=== PATIENT | female | born 1960 | race African-American/Black ===

== ENCOUNTER → 2017-11-19 | Outpatient (CLI) | payer OTHER ==
[~2017-11-19] MED LIST: AEC81 PO; AMLO10TA2 PO; AMPI500C12 PO; BIMA2.5D4 OU; BRIM5DRO OU; CEFUROXIME SODIUM 1.5 GM VIAL IVP SCH; FOLI1TAB48 PO; HAIR SKIN NAILS PO; LISI1TAB11 PO; METO25 PO; OMEG-108 PO; TRAM50TA2 PO; [UNRECOGNIZED DRUG - OTHER]
[2017-11-19 14:12] LABS: LYMPHOCYTES % (AUTO) 33.4 % (21.0-51.0); MEAN CORPUSCULAR HEMOGLOBIN 28.9 pg (27.0-33.0); MEAN CORPUSCULAR HGB CONC 32.9 g/dL (32.0-36.0); MEAN CORPUSCULAR VOLUME 88.1 fL (79-99); MONOCYTES % (AUTO) 9.2 % (3.0-13.0); NEUTROPHILS % (AUTO) 54.4 % (40.0-77.0); PLATELET COUNT (AUTO) 262 K/uL (130-400); RED BLOOD CELL COUNT(AUTO) 4.55 MIL/uL (4.00-5.50); RED CELL DISTRIBUTION WIDTH 12.4 % (11.0-15.5); WHITE BLOOD COUNT (AUTO) 4.7 K/uL (4.8-10.8)
[2017-11-19 14:22] LABS: INR 0.95 (0.85-1.15); PARTIAL THROMBOPLASTIN TIME 31.3 SEC (26.3-35.5)
[2017-11-19 14:28] LABS: ALBUMIN 3.8 g/dL (3.5-5.0); BILIRUBIN,TOTAL 0.3 mg/dL (0.2-1.0); CREATININE 1.1 mg/dL (0.5-1.5); HEMOGLOBIN A1C 5.8 % (4.0-6.0); POTASSIUM 4.3 mmol/L (3.5-5.1); TOTAL PROTEIN, SERUM 8.1 g/dL (6.0-8.3)
== END | disposition home or self-care (01) ==
LOC: DAH 10:00 → EDSTATUS 11-20 10:00
PROVIDERS: ATTEND Thoracic Surgery (Cardiothoracic Vascular Surgery)
DX: Z01.818 Encounter for other preprocedural examination (principal); I71.9 Aortic aneurysm of unspecified site, without rupture; I35.1 Nonrheumatic aortic (valve) insufficiency
CPT/HCPCS: 36415; 71046; 80053; 80061; 83036; 85025; 85610; 85730; 86850; 86900; 86901; 86922; 93005; 94010

== ENCOUNTER 2017-12-03 11:00 | Inpatient (IN) | payer OTHER ==
[~2017-12-03] VITALS: Ht 165.1 cm; Wt 76.5 kg
[~2017-12-03 11:00] MED LIST changes: -AEC81 PO; -AMPI500C12 PO; -CEFUROXIME SODIUM 1.5 GM VIAL IVP SCH; -METO25 PO; -TRAM50TA2 PO; -[UNRECOGNIZED DRUG - OTHER]
[2017-12-03 12:37] LABS: BASOPHILS % (AUTO) 1.5 % (0.0-5.0); EOSINOPHILS % (AUTO) 2.1 % (0.0-8.0); HEMATOCRIT 38.7 % (36-48); LYMPHOCYTES % (AUTO) 37.1 % (21.0-51.0); MEAN CORPUSCULAR HGB CONC 33.8 g/dL (32.0-36.0); MONOCYTES % (AUTO) 7.1 % (3.0-13.0); NEUTROPHILS % (AUTO) 52.2 % (40.0-77.0); PLATELET COUNT (AUTO) 275 K/uL (130-400); RED BLOOD CELL COUNT(AUTO) 4.35 MIL/uL (4.00-5.50); RED CELL DISTRIBUTION WIDTH 12.6 % (11.0-15.5); WHITE BLOOD COUNT (AUTO) 4.4 K/uL (4.8-10.8)
[2017-12-03 12:45] LABS: HEMOGLOBIN A1C 5.5 % (4.0-6.0)
[2017-12-03 12:51] LABS: ALBUMIN 3.8 g/dL (3.5-5.0); BILIRUBIN,TOTAL 0.3 mg/dL (0.2-1.0); CREATININE 1.2 mg/dL (0.5-1.5)
[2017-12-03] MEDS ORDERED: [UNRECOGNIZED DRUG - OTHER] (12:57)
[2017-12-03 13:02] LABS: INR 0.96 (0.85-1.15); PARTIAL THROMBOPLASTIN TIME 31.9 SEC (26.3-35.5); PROTHROMBIN TIME 10.1 SEC (9.6-11.6)
[2017-12-03 13:11] VITALS: BP 140/78
[2017-12-03] MEDS: CEFUROXIME SODIUM 1.5 GM VIAL IVP SCH (14:15)
[2017-12-04] VITALS (22 sets, daily range): BP systolic 86–142; BP diastolic 47–84
[2017-12-04] MEDS ORDERED: SODIUM CHLORIDE 0.9% 1000ML 1,000 ML IV ONE (08:07)
[2017-12-04] MEDS ORDERED: NOREPINEPHRINE BITARTRATE 1 MG/1 ML ML IV ONE (08:58)
[2017-12-04] MEDS ORDERED: DELNIDO FORMULA 1 BAG IV ONE (09:03)
[2017-12-04] MEDS ORDERED: POTASSIUM CHLORIDE 20MEQ/100ML 100 ML IV ONE (09:04)
[2017-12-04] MEDS ORDERED: BACITRACIN 50,000 UNIT VIAL ONE (09:05)
[2017-12-04] MEDS ORDERED: THROMBIN-JMI 5000 UNIT/VIAL TP ONE (09:30)
[2017-12-04] MEDS ORDERED: GLYCOPYRROLATE 0.2 MG/ML 5 ML VIAL ONE (10:10)
[2017-12-04] MEDS ORDERED: DEXAMETHASONE SOD PHOSPHATE 10MG/ML 1ML VIAL ONE (10:10)
[2017-12-04] MEDS ORDERED: LIDOCAINE PF 2% 5ML ABBOJECT ONE (10:10)
[2017-12-04] MEDS ORDERED: SUCCINYLCHOLINE 200MG/10ML SYR ONE (10:10)
[2017-12-04] MEDS ORDERED: FENTANYL CITRATE PF 50 MCG/1 ML 2ML VIAL ONE ×3 (10:11→11:08)
[2017-12-04] MEDS ORDERED: MIDAZOLAM HCL 1 MG/ML 2ML VIAL ONE (10:11)
[2017-12-04] MEDS ORDERED: PROPOFOL 10 MG/ML 20ML VIAL IV ONE (10:11)
[2017-12-04] MEDS: CEFUROXIME SODIUM 1.5 GM VIAL IVP SCH ×2 (10:33→21:43)
[2017-12-04 10:44] LABS: ABG BASE EXCESS -0.9 mmol/L (-2.0-3.0); ABG HCO3 24.3 mmol/L (21.0-28.0); ABG OXYGEN SATURATION 99.5 % (95.0-99.0); ABG PCO2 42 mmHg (32-45)
[2017-12-04] MEDS: AMBU PUMP 1 EACH EACH MISC SCH ×2 (11:00→11:11)
[2017-12-04] MEDS ORDERED: METHYLPREDNISOLONE SOD SUCC 1,000 MG/8 ML ML IV ONE (11:01)
[2017-12-04] MEDS ORDERED: CALCIUM CHLORIDE 100 MG/ML 10 ML SYG IVP ONE (12:00)
[2017-12-04] MEDS ORDERED: MANNITOL 25% 50ML VIAL IV ONE (12:00)
[2017-12-04] MEDS ORDERED: AMINOCAPROIC ACID 250 MG/ML 20 ML VIAL IV ONE (12:00)
[2017-12-04] MEDS ORDERED: ALBUMIN (HUMAN) 25% 50 ML IV ONE (12:00)
[2017-12-04] MEDS ORDERED: MAGNESIUM SULFATE 1 GM/2 ML VIAL IM ONE (12:00)
[2017-12-04] MEDS ORDERED: HEPARIN SODIUM 1000UNIT/ML 10ML VIAL IV ONE (12:00)
[2017-12-04] MEDS ORDERED: SODIUM BICARB 8.4% 50ML SYRINGE IVP ONE (12:00)
[2017-12-04 12:02] LABS: ABG BASE EXCESS 1.3 mmol/L (-2.0-3.0); ABG HCO3 24.4 mmol/L (21.0-28.0); ABG OXYGEN SATURATION 99.1 % (95.0-99.0); ABG PCO2 33 mmHg (32-45)
[2017-12-04 12:38] LABS: ABG BASE EXCESS -0.6 mmol/L (-2.0-3.0); ABG HCO3 23.5 mmol/L (21.0-28.0); ABG OXYGEN SATURATION 98.9 % (95.0-99.0); ABG PCO2 37 mmHg (32-45)
[2017-12-04] MEDS ORDERED: ROPIVACAINE 0.2% 2MG/ML 100ML VIAL IJ ONE (13:00)
[2017-12-04 13:04] LABS: ABG BASE EXCESS -0.7 mmol/L (-2.0-3.0); ABG HCO3 23.2 mmol/L (21.0-28.0); ABG OXYGEN SATURATION 98.9 % (95.0-99.0); ABG PCO2 35 mmHg (32-45)
[2017-12-04] MEDS ORDERED: PROTAMINE SULFATE 10 MG/ML 5 ML VIAL ONE (13:13)
[2017-12-04] MEDS ORDERED: SODIUM CHLORIDE 0.9% 500ML 500 ML IV SCH (13:17)
[2017-12-04] MEDS ORDERED: MAGNESIUM 2GM PREMIX 50ML 50 ML IV PRN (13:30)
[2017-12-04] MEDS ORDERED: ACETAMINOPHEN 650 MG SUPPOSITORY RC PRN (13:30)
[2017-12-04] MEDS ORDERED: INSULIN REGULAR, HUMAN 3ML 100 UNIT in SODIUM CHLORIDE 0.9% 99 ML IV SCH ×2 (13:30)
[2017-12-04] MEDS ORDERED: AMINOCAPROIC ACID 15,000 MG in SODIUM CHLORIDE 0.9% 250 ML IV SCH (13:30)
[2017-12-04] MEDS ORDERED: SODIUM CHLORIDE 0.9% 1000ML 1,000 ML IV SCH (13:30)
[2017-12-04] MEDS ORDERED: GLUCAGON 1MG KIT 1 MG ML IM PRN (13:30)
[2017-12-04] MEDS ORDERED: POTASSIUM PHOS 15 mMOL+NS250ML 250 ML IV PRN (13:30)
[2017-12-04] MEDS ORDERED: ONDANSETRON HCL 4 MG/2 ML VIAL IV PRN (13:30)
[2017-12-04] MEDS ORDERED: NITROGLYCERIN 50 MG/D5% WATER 250 BOT IV SCH (13:30)
[2017-12-04] MEDS ORDERED: CALCIUM GLUCONATE 1 GM in SODIUM CHLORIDE 0.9% 50 ML IV PRN (13:30)
[2017-12-04] MEDS ORDERED: NICARDIPINE HCL 100 MG in SODIUM CHLORIDE 0.9% 100 ML IV PRN (13:30)
[2017-12-04] MEDS ORDERED: EPINEPHRINE 2 MG in SODIUM CHLORIDE 0.9% 250 ML IV PRN (13:30)
[2017-12-04] MEDS ORDERED: SODIUM CHLORIDE 0.9% 250 ML IV PRN (13:30)
[2017-12-04] MEDS ORDERED: PROPOFOL 1000 MG/100 ML 100 ML IV PRN (13:30)
[2017-12-04] MEDS ORDERED: NOREPINEPHRINE 4MG/NS 250ML 250 ML IV PRN (13:30)
[2017-12-04] MEDS ORDERED: SODIUM BICARB 8.4% 50ML SYRINGE IV PRN (13:30)
[2017-12-04] MEDS ORDERED: ALBUMIN (HUMAN) 5% 250 ML IV PRN (13:30)
[2017-12-04] MEDS ORDERED: DEXTROSE 50%-WATER 50 ML DISP.SYRIN IV PRN (13:30)
[2017-12-04] MEDS ORDERED: MORPHINE SULFATE 2 MG/ML 1ML SYG IV PRN (13:30)
[2017-12-04] MEDS ORDERED: SODIUM CHLORIDE 0.9% 10 ML VIAL IVP PRN (13:30)
[2017-12-04 13:46] LABS: ABG BASE EXCESS -2.6 mmol/L (-2.0-3.0); ABG HCO3 21.1 mmol/L (21.0-28.0); ABG OXYGEN SATURATION 99.1 % (95.0-99.0); ABG PCO2 33 mmHg (32-45)
[2017-12-04] MEDS ORDERED: MORPHINE SULFATE 10 MG/ML 1ML SYG ONE (13:55)
[2017-12-04 15:02] LABS: ABG BASE EXCESS -4.1 mmol/L (-2.0-3.0); ABG HCO3 18.5 mmol/L (21.0-28.0); ABG OXYGEN SATURATION 99.4 % (95.0-99.0); ABG PCO2 27 mmHg (32-45)
[2017-12-04 15:20] LABS: CREATININE 1.1 mg/dL (0.5-1.5); PHOSPHORUS 2.1 mg/dL (2.5-4.9); POTASSIUM 3.8 mmol/L (3.5-5.1)
[2017-12-04] MEDS: MORPHINE SULFATE 4 MG/1ML SYG IV PRN (15:21)
[2017-12-04 15:23] LABS: HEMATOCRIT 32.6 % (36-48); MEAN CORPUSCULAR HEMOGLOBIN 28.6 pg (27.0-33.0); MEAN CORPUSCULAR HGB CONC 32.8 g/dL (32.0-36.0); MEAN CORPUSCULAR VOLUME 87.3 fL (79-99); PLATELET COUNT (AUTO) 185 K/uL (130-400); RED BLOOD CELL COUNT(AUTO) 3.73 MIL/uL (4.00-5.50); RED CELL DISTRIBUTION WIDTH 12.3 % (11.0-15.5); WHITE BLOOD COUNT (AUTO) 14.2 K/uL (4.8-10.8)
[2017-12-04] MEDS: POTASSIUM CHLORIDE 20MEQ/100ML 100 ML IV PRN ×3 (15:54→21:42)
[2017-12-04] MEDS: ONDANSETRON HCL MDV 20ML 2 MG/ML VIAL IV PRN (17:16)
[2017-12-04 18:33] LABS: ABG BASE EXCESS -3.8 mmol/L (-2.0-3.0); ABG HCO3 19.9 mmol/L (21.0-28.0); ABG OXYGEN SATURATION 98.9 % (95.0-99.0); ABG PCO2 32 mmHg (32-45)
[2017-12-04] MEDS ORDERED: SODIUM BICARB 50MEQ 50ML VIAL ONE (20:33)
[2017-12-04] MEDS ORDERED: CEFUROXIME 1.5GM+NS 100ML 100 ML IV SCH (21:30)
[2017-12-04 21:38] LABS: ABG BASE EXCESS -0.6 mmol/L (-2.0-3.0); ABG HCO3 24.4 mmol/L (21.0-28.0); ABG OXYGEN SATURATION 97.5 % (95.0-99.0); ABG PCO2 41 mmHg (32-45)
[2017-12-04] MEDS ORDERED: CALCIUM GLUCONATE 1 GM/10 ML VIAL IV ONE (21:39)
[2017-12-04] MEDS: HYDROCODONE/ACETAMINOPHEN 5/325 MG TAB PO PRN (22:18)
[2017-12-05] VITALS (24 sets, daily range): BP systolic 103–143; BP diastolic 65–93
[2017-12-05 00:19] LABS: ABG BASE EXCESS -3.8 mmol/L (-2.0-3.0); ABG HCO3 21.1 mmol/L (21.0-28.0); ABG OXYGEN SATURATION 96.4 % (95.0-99.0); ABG PCO2 38 mmHg (32-45)
[2017-12-05] MEDS ORDERED: SODIUM BICARB 50MEQ 50ML VIAL ONE (00:29)
[2017-12-05] MEDS: ONDANSETRON HCL MDV 20ML 2 MG/ML VIAL IV PRN ×2 (01:13→05:02)
[2017-12-05] MEDS: POTASSIUM CHLORIDE 20MEQ/100ML 100 ML IV PRN ×2 (02:14→05:52)
[2017-12-05 03:53] LABS: HEMATOCRIT 32.1 % (36-48); MEAN CORPUSCULAR HGB CONC 34.3 g/dL (32.0-36.0); MEAN CORPUSCULAR VOLUME 87.6 fL (79-99); PLATELET COUNT (AUTO) 172 K/uL (130-400); RED BLOOD CELL COUNT(AUTO) 3.67 MIL/uL (4.00-5.50); RED CELL DISTRIBUTION WIDTH 12.4 % (11.0-15.5); WHITE BLOOD COUNT (AUTO) 12.7 K/uL (4.8-10.8)
[2017-12-05 04:04] LABS: CREATININE 1.2 mg/dL (0.5-1.5); MAGNESIUM 2.3 mg/dL (1.80-2.40); PHOSPHORUS 2.4 mg/dL (2.5-4.9); POTASSIUM 3.4 mmol/L (3.5-5.1)
[2017-12-05 04:08] LABS: ABG BASE EXCESS 1.7 mmol/L (-2.0-3.0); ABG HCO3 26.3 mmol/L (21.0-28.0); ABG OXYGEN SATURATION 95.3 % (95.0-99.0); ABG PCO2 42 mmHg (32-45)
[2017-12-05] MEDS: HYDROCODONE/ACETAMINOPHEN 5/325 MG TAB PO PRN ×4 (06:10→17:54)
[2017-12-05] MEDS: SIMETHICONE 80 MG TAB.CHEW PO SCH ×4 (08:56→22:04)
[2017-12-05] MEDS: BRIMONIDINE TARTRATE 0.2% 5 ML BOTTLE OU SCH ×2 (08:59→22:10)
[2017-12-05] MEDS: TIMOLOL MALEATE 0.5% 5 ML BOTTLE OU SCH ×2 (08:59→22:10)
[2017-12-05] MEDS: FAMOTIDINE/PF 20 MG/2 ML VIAL IV SCH (09:00)
[2017-12-05] MEDS: CEFUROXIME SODIUM 1.5 GM VIAL IVP SCH ×2 (09:00→22:01)
[2017-12-05] MEDS ORDERED: FUROSEMIDE 10 MG/ML 2ML VIAL IV SCH (22:00)
[2017-12-05] MEDS: LATANOPROST 2.5 ML DROPS OU SCH (22:06)
[2017-12-06] VITALS (12 sets, daily range): BP systolic 98–156; BP diastolic 64–96
[2017-12-06] MEDS: HYDROCODONE/ACETAMINOPHEN 5/325 MG TAB PO PRN ×5 (00:04→21:04)
[2017-12-06 04:43] LABS: HEMATOCRIT 29.2 % (36-48); MEAN CORPUSCULAR HGB CONC 32.9 g/dL (32.0-36.0); MEAN CORPUSCULAR VOLUME 88.2 fL (79-99); PLATELET COUNT (AUTO) 166 K/uL (130-400); RED BLOOD CELL COUNT(AUTO) 3.31 MIL/uL (4.00-5.50); WHITE BLOOD COUNT (AUTO) 21.5 K/uL (4.8-10.8)
[2017-12-06 04:46] LABS: CREATININE 1.1 mg/dL (0.5-1.5); POTASSIUM 4.2 mmol/L (3.5-5.1)
[2017-12-06] MEDS: FUROSEMIDE 20 MG TABLET PO SCH ×2 (08:41→16:35)
[2017-12-06] MEDS: ASPIRIN 81 MG EC TAB PO SCH (08:41)
[2017-12-06] MEDS: METOPROLOL TARTRATE 25 MG TAB PO SCH ×2 (08:41→20:51)
[2017-12-06] MEDS: FAMOTIDINE/PF 20 MG/2 ML VIAL IV SCH (08:43)
[2017-12-06] MEDS: BRIMONIDINE TARTRATE 0.2% 5 ML BOTTLE OU SCH ×2 (08:44→20:52)
[2017-12-06] MEDS: TIMOLOL MALEATE 0.5% 5 ML BOTTLE OU SCH ×2 (08:45→20:52)
[2017-12-06] MEDS: SIMETHICONE 80 MG TAB.CHEW PO SCH ×4 (08:48→20:51)
[2017-12-06] MEDS ORDERED: GLUCAGON 1MG KIT 1 MG ML IM PRN (11:45)
[2017-12-06] MEDS ORDERED: DEXTROSE 50%-WATER 50 ML DISP.SYRIN IV PRN (11:45)
[2017-12-06 12:41] LABS: APPEARANCE,URINE Cloudy (CLEAR); BILIRUBIN,URINE Negative (NEGATIVE); COLOR,URINE Yellow (YELLOW); GLUCOSE, URINE (UA) Negative (NEGATIVE); KETONES,URINE Negative (NEGATIVE); LEUKOCYTE ESTERASE ,URINE Large (NEGATIVE); NITRATE,URINE Negative (NEGATIVE); OCCULT BLOOD,URINE Small (NEGATIVE); PH,URINE 5.5 (5.0-8.0); PROTEIN,URINE Negative (NEGATIVE); UROBILINOGEN,URINE 0.2 mg/dL (0.2-1.0)
[2017-12-06 12:59] LABS: BACTERIA,URINE Few /HPF (None Seen); MUCUS,URINE Moderate LPF (None Seen)
[2017-12-06] MEDS: INSULIN HUMULIN R 100 UNIT/ML 3ML SQ SCH ×2 (16:30→21:00)
[2017-12-06] MEDS: MORPHINE SULFATE 4 MG/1ML SYG IV PRN (18:09)
[2017-12-06] MEDS: LATANOPROST 2.5 ML DROPS OU SCH (20:52)
[2017-12-07 03:50] VITALS: BP 140/97
[2017-12-07 04:56] LABS: MEAN CORPUSCULAR HEMOGLOBIN 29.5 pg (27.0-33.0); MEAN CORPUSCULAR HGB CONC 33.5 g/dL (32.0-36.0); MEAN CORPUSCULAR VOLUME 88.2 fL (79-99); NUCLEATED RED BLOOD CELLS 0.1 % (0.0-0.19); PLATELET COUNT (AUTO) 197 K/uL (130-400); RED BLOOD CELL COUNT(AUTO) 3.63 MIL/uL (4.00-5.50); RED CELL DISTRIBUTION WIDTH 12.7 % (11.0-15.5); WHITE BLOOD COUNT (AUTO) 22.6 K/uL (4.8-10.8)
[2017-12-07 05:23] LABS: POTASSIUM 4.1 mmol/L (3.5-5.1)
[2017-12-07] MEDS: INSULIN HUMULIN R 100 UNIT/ML 3ML SQ SCH ×4 (06:07→21:00)
[2017-12-07 07:21] VITALS: BP 139/92
[2017-12-07] MEDS: HYDROCODONE/ACETAMINOPHEN 5/325 MG TAB PO PRN ×4 (07:43→22:42)
[2017-12-07] MEDS: BRIMONIDINE TARTRATE 0.2% 5 ML BOTTLE OU SCH ×2 (07:45→22:38)
[2017-12-07] MEDS: TIMOLOL MALEATE 0.5% 5 ML BOTTLE OU SCH ×2 (07:45→22:38)
[2017-12-07] MEDS ORDERED: CEFTRIAXONE 1GM/D5W 50ML 50 ML IV SCH (09:00)
[2017-12-07] MEDS: ASPIRIN 81 MG EC TAB PO SCH (09:35)
[2017-12-07] MEDS: CEFTRIAXONE SODIUM 1 GM IVP SCH (09:36)
[2017-12-07] MEDS: FAMOTIDINE/PF 20 MG/2 ML VIAL IV SCH (09:36)
[2017-12-07] MEDS: METOPROLOL TARTRATE 25 MG TAB PO SCH ×2 (09:36→22:34)
[2017-12-07] MEDS: FUROSEMIDE 20 MG TABLET PO SCH ×2 (09:36→16:42)
[2017-12-07 11:12] VITALS: BP 106/65
[2017-12-07] MEDS: SIMETHICONE 80 MG TAB.CHEW PO SCH ×4 (12:39→22:34)
[2017-12-07 16:31] VITALS: BP 138/97
[2017-12-07 19:36] VITALS: BP 123/82
[2017-12-07] MEDS: LATANOPROST 2.5 ML DROPS OU SCH (22:36)
[2017-12-07 23:26] VITALS: BP 114/77
[2017-12-08] MEDS: HYDROCODONE/ACETAMINOPHEN 5/325 MG TAB PO PRN (03:25)
[2017-12-08 04:00] VITALS: BP 131/90
[2017-12-08 05:27] LABS: HEMATOCRIT 28.5 % (36-48); MEAN CORPUSCULAR HEMOGLOBIN 30.1 pg (27.0-33.0); MEAN CORPUSCULAR HGB CONC 34.2 g/dL (32.0-36.0); MEAN CORPUSCULAR VOLUME 87.9 fL (79-99); NUCLEATED RED BLOOD CELLS 0.3 % (0.0-0.19); PLATELET COUNT (AUTO) 198 K/uL (130-400); RED BLOOD CELL COUNT(AUTO) 3.24 MIL/uL (4.00-5.50); RED CELL DISTRIBUTION WIDTH 12.6 % (11.0-15.5); WHITE BLOOD COUNT (AUTO) 12.3 K/uL (4.8-10.8)
[2017-12-08 05:35] LABS: CREATININE 1.3 mg/dL (0.5-1.5); POTASSIUM 3.8 mmol/L (3.5-5.1)
[2017-12-08] MEDS: INSULIN HUMULIN R 100 UNIT/ML 3ML SQ SCH ×4 (05:50→20:58)
[2017-12-08 07:35] VITALS: BP 95/54
[2017-12-08] MEDS: METOPROLOL TARTRATE 25 MG TAB PO SCH ×2 (09:00→21:39)
[2017-12-08] MEDS: ASPIRIN 81 MG EC TAB PO SCH (09:30)
[2017-12-08] MEDS: SIMETHICONE 80 MG TAB.CHEW PO SCH ×4 (09:30→21:39)
[2017-12-08] MEDS: FUROSEMIDE 20 MG TABLET PO SCH ×2 (09:30→16:51)
[2017-12-08] MEDS: ACETAMINOPHEN 325 MG TAB PO PRN ×2 (09:31→17:30)
[2017-12-08] MEDS: BRIMONIDINE TARTRATE 0.2% 5 ML BOTTLE OU SCH ×2 (09:32→21:40)
[2017-12-08] MEDS: TIMOLOL MALEATE 0.5% 5 ML BOTTLE OU SCH ×2 (09:32→21:40)
[2017-12-08] MEDS: FAMOTIDINE/PF 20 MG/2 ML VIAL IV SCH (09:33)
[2017-12-08] MEDS: CEFTRIAXONE SODIUM 1 GM IVP SCH (09:33)
[2017-12-08 11:10] VITALS: BP 91/55
[2017-12-08 16:03] VITALS: BP 100/67
[2017-12-08 19:57] VITALS: BP 126/79
[2017-12-08] MEDS ORDERED: ENOXAPARIN SODIUM 30 MG/0.3 ML SQ SCH (21:00)
[2017-12-08] MEDS: LATANOPROST 2.5 ML DROPS OU SCH (21:41)
[2017-12-08 23:41] VITALS: BP 105/65
[2017-12-09] VITALS (7 sets, daily range): BP systolic 102–163; BP diastolic 67–97
[2017-12-09 05:18] LABS: HEMATOCRIT 27.9 % (36-48); MEAN CORPUSCULAR HEMOGLOBIN 29.1 pg (27.0-33.0); MEAN CORPUSCULAR HGB CONC 33.1 g/dL (32.0-36.0); MEAN CORPUSCULAR VOLUME 87.9 fL (79-99); NUCLEATED RED BLOOD CELLS 0.3 % (0.0-0.19); PLATELET COUNT (AUTO) 211 K/uL (130-400); RED BLOOD CELL COUNT(AUTO) 3.17 MIL/uL (4.00-5.50); RED CELL DISTRIBUTION WIDTH 12.4 % (11.0-15.5); WHITE BLOOD COUNT (AUTO) 8.9 K/uL (4.8-10.8)
[2017-12-09 05:22] LABS: CREATININE 1.2 mg/dL (0.5-1.5); POTASSIUM 3.3 mmol/L (3.5-5.1)
[2017-12-09] MEDS ORDERED: POTASSIUM CHLORIDE 10 MEQ/TAB.SA PO ONE ×2 (06:12)
[2017-12-09] MEDS ORDERED: POTASSIUM CHLORIDE 10% ELIXIR 20 MEQ/15 ML UDCUP PO PRN (06:15)
[2017-12-09] MEDS ORDERED: POTASSIUM CHLORIDE 20MEQ/100ML 100 ML IV PRN (06:15)
[2017-12-09] MEDS ORDERED: LIDOCAINE HCL-MPF 1% 2ML VIAL IVP PRN (06:15)
[2017-12-09] MEDS: INSULIN HUMULIN R 100 UNIT/ML 3ML SQ SCH ×4 (07:03→21:00)
[2017-12-09] MEDS: BRIMONIDINE TARTRATE 0.2% 5 ML BOTTLE OU SCH ×2 (09:00→19:55)
[2017-12-09] MEDS: ASPIRIN 81 MG EC TAB PO SCH (10:46)
[2017-12-09] MEDS: FUROSEMIDE 20 MG TABLET PO SCH (10:46)
[2017-12-09] MEDS: POTASSIUM CHLORIDE 20 MEQ ERTAB PO PRN ×2 (10:47→13:16)
[2017-12-09] MEDS: CEFTRIAXONE SODIUM 1 GM IVP SCH (10:47)
[2017-12-09] MEDS: METOPROLOL TARTRATE 25 MG TAB PO SCH ×2 (10:47→21:57)
[2017-12-09] MEDS: TIMOLOL MALEATE 0.5% 5 ML BOTTLE OU SCH ×2 (10:53→19:55)
[2017-12-09] MEDS: SIMETHICONE 80 MG TAB.CHEW PO SCH ×4 (10:53→21:57)
[2017-12-09] MEDS: FAMOTIDINE/PF 20 MG/2 ML VIAL IV SCH (10:54)
[2017-12-09] MEDS: ACETAMINOPHEN 325 MG TAB PO PRN (19:54)
[2017-12-09] MEDS: LATANOPROST 2.5 ML DROPS OU SCH (19:55)
[2017-12-10 04:18] VITALS: BP 157/97
[2017-12-10 04:38] LABS: INR 0.92 (0.85-1.15); PARTIAL THROMBOPLASTIN TIME 29.9 SEC (26.3-35.5); PROTHROMBIN TIME 9.7 SEC (9.6-11.6)
[2017-12-10 04:40] LABS: CREATININE 1.2 mg/dL (0.5-1.5); POTASSIUM 3.9 mmol/L (3.5-5.1)
[2017-12-10] MEDS: INSULIN HUMULIN R 100 UNIT/ML 3ML SQ SCH (06:13)
[2017-12-10 07:50] VITALS: BP 149/96
[2017-12-10] MEDS ORDERED: MORPHINE SULFATE 4 MG/1ML SYG IVP ONE (08:00)
[2017-12-10] MEDS: TIMOLOL MALEATE 0.5% 5 ML BOTTLE OU SCH ×2 (09:00→21:00)
[2017-12-10] MEDS: BRIMONIDINE TARTRATE 0.2% 5 ML BOTTLE OU SCH ×2 (09:00→21:00)
[2017-12-10] MEDS: SIMETHICONE 80 MG TAB.CHEW PO SCH ×4 (09:00→21:15)
[2017-12-10] MEDS ORDERED: FENTANYL CITRATE PF 50 MCG/1 ML 2ML VIAL ONE (09:53)
[2017-12-10] MEDS ORDERED: LIDOCAINE HCL 1% 20 ML VIAL ONE (10:37)
[2017-12-10 11:43] VITALS: BP 177/113
[2017-12-10] MEDS: ACETAMINOPHEN 325 MG TAB PO PRN (11:47)
[2017-12-10] MEDS: FUROSEMIDE 20 MG TABLET PO SCH (12:30)
[2017-12-10] MEDS: METOPROLOL TARTRATE 25 MG TAB PO SCH ×2 (12:30→21:16)
[2017-12-10] MEDS: ASPIRIN 81 MG EC TAB PO SCH (12:31)
[2017-12-10] MEDS: CEFTRIAXONE SODIUM 1 GM IVP SCH (12:32)
[2017-12-10] MEDS: HYDROCODONE/ACETAMINOPHEN 5/325 MG TAB PO PRN (15:07)
[2017-12-10 16:41] VITALS: BP 149/104
[2017-12-10 20:14] VITALS: BP 144/91
[2017-12-10] MEDS: LATANOPROST 2.5 ML DROPS OU SCH (21:00)
[2017-12-11] VITALS: BP 115/76
[2017-12-11 03:56] VITALS: BP 119/80
[2017-12-11 04:27] LABS: HEMATOCRIT 29.8 % (36-48); MEAN CORPUSCULAR HEMOGLOBIN 29.1 pg (27.0-33.0); MEAN CORPUSCULAR HGB CONC 33.1 g/dL (32.0-36.0); MEAN CORPUSCULAR VOLUME 87.8 fL (79-99); NUCLEATED RED BLOOD CELLS 0.2 % (0.0-0.19); PLATELET COUNT (AUTO) 342 K/uL (130-400); RED BLOOD CELL COUNT(AUTO) 3.39 MIL/uL (4.00-5.50); RED CELL DISTRIBUTION WIDTH 12.4 % (11.0-15.5); WHITE BLOOD COUNT (AUTO) 8.7 K/uL (4.8-10.8)
[2017-12-11 04:38] LABS: CREATININE 1.2 mg/dL (0.5-1.5); POTASSIUM 4.3 mmol/L (3.5-5.1)
[2017-12-11 07:55] VITALS: BP 143/96
[2017-12-11] MEDS: CEFTRIAXONE SODIUM 1 GM IVP SCH (09:52)
[2017-12-11] MEDS: SIMETHICONE 80 MG TAB.CHEW PO SCH ×4 (09:52→22:00)
[2017-12-11] MEDS: FAMOTIDINE 20MG TAB 20 MG TAB PO SCH (09:52)
[2017-12-11] MEDS: BRIMONIDINE TARTRATE 0.2% 5 ML BOTTLE OU SCH ×2 (09:52→21:00)
[2017-12-11] MEDS: TIMOLOL MALEATE 0.5% 5 ML BOTTLE OU SCH ×2 (09:52→21:00)
[2017-12-11] MEDS: METOPROLOL TARTRATE 25 MG TAB PO SCH ×3 (09:52→21:00)
[2017-12-11] MEDS: ASPIRIN 81 MG EC TAB PO SCH (09:52)
[2017-12-11] MEDS: FUROSEMIDE 20 MG TABLET PO SCH (10:07)
[2017-12-11] MEDS ORDERED: PHARMACY COMMUNICATION MISC SCH (10:15)
[2017-12-11] MEDS: HYDROCHLOROTHIAZIDE 25 MG TABLET PO SCH (10:46)
[2017-12-11] MEDS: LISINOPRIL 20 MG TABLET PO SCH (10:46)
[2017-12-11 11:30] VITALS: BP 104/67
[2017-12-11] MEDS: HYDROCODONE/ACETAMINOPHEN 5/325 MG TAB PO PRN ×2 (12:15→20:18)
[2017-12-11 16:28] VITALS: BP 96/67
[2017-12-11 20:05] VITALS: BP 120/86
[2017-12-11] MEDS: LATANOPROST 2.5 ML DROPS OU SCH (21:00)
[2017-12-12] VITALS: BP 94/58
[2017-12-12] MEDS: HYDROCODONE/ACETAMINOPHEN 5/325 MG TAB PO PRN ×2 (03:27→11:06)
[2017-12-12 03:29] VITALS: BP 143/91
[2017-12-12 04:57] LABS: CREATININE 1.2 mg/dL (0.5-1.5); POTASSIUM 3.9 mmol/L (3.5-5.1)
[2017-12-12 07:00] VITALS: BP 108/76
[2017-12-12] MEDS ORDERED: AEC81 PO (08:29)
[2017-12-12] MEDS ORDERED: METO25 PO (08:29)
[2017-12-12] MEDS ORDERED: TRAM50TA2 PO (08:29)
[2017-12-12] MEDS ORDERED: AMPI500C12 PO (08:30)
[2017-12-12] MEDS: BRIMONIDINE TARTRATE 0.2% 5 ML BOTTLE OU SCH (09:00)
[2017-12-12] MEDS: TIMOLOL MALEATE 0.5% 5 ML BOTTLE OU SCH (09:00)
[2017-12-12] MEDS: FUROSEMIDE 20 MG TABLET PO SCH (09:00)
[2017-12-12] MEDS: FAMOTIDINE 20MG TAB 20 MG TAB PO SCH (09:51)
[2017-12-12] MEDS: LISINOPRIL 20 MG TABLET PO SCH (09:51)
[2017-12-12] MEDS: METOPROLOL TARTRATE 25 MG TAB PO SCH ×2 (09:52→10:15)
[2017-12-12] MEDS: SIMETHICONE 80 MG TAB.CHEW PO SCH ×3 (09:52→17:39)
[2017-12-12] MEDS: CEFTRIAXONE SODIUM 1 GM IVP SCH (09:53)
[2017-12-12 11:00] VITALS: BP 101/57
[2017-12-12 16:00] VITALS: BP 124/87
[2017-12-12] MEDS: HYDROCHLOROTHIAZIDE 25 MG TABLET PO SCH (17:39)
[2017-12-12] MEDS: ASPIRIN 81 MG EC TAB PO SCH (18:12)
== END 2017-12-12 19:30 | disposition home or self-care (01) | DRG 220 ==
LOC: DAHIP 12-04 07:35 → 2CV 12-04 13:24 → 2BH 12-05 05:24 → 2DH 12-06 06:25
PROVIDERS: ADMIT Thoracic Surgery (Cardiothoracic Vascular Surgery); ATTEND Thoracic Surgery (Cardiothoracic Vascular Surgery)
PROC: 02RX0JZ Replacement of Thoracic Aorta, Ascending/Arch with Synthetic Substitute, Open Approach (ICD-10-PCS; principal; 2017-12-04 10:13)
PROC: 5A1221Z Performance of Cardiac Output, Continuous (ICD-10-PCS; 2017-12-04 10:13)
PROC: B24BZZ4 Ultrasonography of Heart with Aorta, Transesophageal (ICD-10-PCS; 2017-12-04 10:13)
PROC: 0W9930Z Drainage of Right Pleural Cavity with Drainage Device, Percutaneous Approach (ICD-10-PCS; 2017-12-10)
DX: I35.1 Nonrheumatic aortic (valve) insufficiency (principal); D62 Acute posthemorrhagic anemia; E11.22 Type 2 diabetes mellitus with diabetic chronic kidney disease; I71.2 Thoracic aortic aneurysm, without rupture; N39.0 Urinary tract infection, site not specified; J93.9 Pneumothorax, unspecified; E78.5 Hyperlipidemia, unspecified; I12.9 Hypertensive chronic kidney disease with stage 1 through stage 4 chronic kidney disease, or unspecified chronic kidney disease; B95.2 Enterococcus as the cause of diseases classified elsewhere; R05 Cough; H40.9 Unspecified glaucoma; N18.2 Chronic kidney disease, stage 2 (mild); Z90.49 Acquired absence of other specified parts of digestive tract; Z90.721 Acquired absence of ovaries, unilateral; Z95.2 Presence of prosthetic heart valve; Z83.3 Family history of diabetes mellitus; Z82.5 Family history of asthma and other chronic lower respiratory diseases; Z82.49 Family history of ischemic heart disease and other diseases of the circulatory system
CPT/HCPCS: 10030; 36415; 71045; 76942; 76998; 80048; 80053; 80061; 81001; 82330; 82435; 82803; 82947; 82948; 83036; 83605; 83735; 84100; 84132; 84295; 85018; 85025; 85027; 85347; 85610; 85730; 86850; 86900; 86901; 86922; 87088; 87186; 88305; 88311; 93005; 93318; 94002; 94150; 97039; A4218; A7048; C1729; J0330; J0610; J0696; J0697; J1100; J1644; J1650; J1815; J1940; J2001; J2150; J2250; J2270; J2704; J2720; J2795; J2930; J3010; J3475; J3480; J3490; J7030; J7040; P9045; P9047